=== PATIENT | female | born 1955 | race Caucasian/White ===

== ENCOUNTER 2016-10-05 12:40 | Emergency (ER) | payer SELFPAY ==
[2016-10-05 13:04] VITALS: TEMP 97.9
[2016-10-05 13:06] VITALS: RESP 18; O2SAT 98
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
[2016-10-05 13:40] VITALS: BP 142/79; PULSE 64
== END 2016-10-05 13:44 | disposition home or self-care (01) ==
LOC: ED 12:40
DX: M54.5 Low back pain (principal); N93.9 Abnormal uterine and vaginal bleeding, unspecified; V49.9XXD Car occupant (driver) (passenger) injured in unspecified traffic accident, subsequent encounter